=== PATIENT | male | born 1955 | race Caucasian/White ===

== ENCOUNTER → 2016-04-23 | Outpatient (CLI) | payer BC ==
[~2016-04-23] VITALS: Ht 190.5 cm; Wt 156.9 kg
[~2016-04-23] MED LIST: ACTOS 15MG TAB15 MG PO; ACTOS30 MG PO; ALAVERT10 M1 PO; AMLODIPINE BESYL5 MG PO; ASPIRIN E.C. 8181 MG PO; AVELIDE; BYETTA; CLARITIN 1010 MG/TAB PO; COZAAR100 MG PO; GLUCOPHAGE; GLUMETZA1000 MG PO; HCTZ 25MG TAB25 MG PO; HYTRIN 2MG CAPSU2 MG PO; IBU800 M1 PO; INDERAL; INDERAL LA120 MG PO; LASIX 20MG TABL20 MG PO; NORCO 325 MG-51 TAB PO; PERCOCET 5/321 UDTAB PO; PROPRANOLOL60 MG PO; PROTONIX20 MG PO; SIMCOR 500 MG-21 TER PO; TERAZOSIN1 MG PO; TRADJENTA5 MG PO; TRESIBA FL100 UNIT/1 SQ; VICTOZA; VICTOZA6 MG/ML SC; ZOCOR 10MG10 MG PO; ZOCOR10 MG PO; ZOFRAN 4MG T4 MG/TAB PO
== END ==
LOC: SUN.DT 15:33
DX: Z48.815 Encounter for surgical aftercare following surgery on the digestive system (principal); Z71.3 Dietary counseling and surveillance

== ENCOUNTER → 2018-10-05 | Outpatient (CLI) | payer BC | LOC: COL.RAD 12:33 | DX: Z13.6 Encounter for screening for cardiovascular disorders (principal); R10.32 Left lower quadrant pain; Z98.890 Other specified postprocedural states ==

== ENCOUNTER → 2023-04-13 | Outpatient (CLI) | payer MEDICARE | LOC: COL.RAD 12:09 | DX: I12.9 Hypertensive chronic kidney disease with stage 1 through stage 4 chronic kidney disease, or unspecified chronic kidney disease (principal); N18.32 Chronic kidney disease, stage 3b ==